=== PATIENT | female | born 1940 | race Caucasian/White ===

== ENCOUNTER 2022-05-24 20:30 | Inpatient (IN) | payer MEDICARE ==
[~2022-05-24] VITALS: Ht 172.7 cm; Wt 64.9 kg
[2022-05-24] MEDS: RIVAROXABAN 20 MG TABLET PO SCH ×2 (21:30→22:42)
[2022-05-24 22:00] VITALS: BP 104/70; PULSE 148; RESP 16; TEMP 97.2; O2SAT 98
[2022-05-24] MEDS ORDERED: Vancomycin IV 1 GM in SODIUM CHLORIDE 0.9% 250ML 250 ML IV ONE (22:00)
[2022-05-24] MEDS ORDERED: AMIODARONE 900MG 900 MG in Premix Bag 1 BAG IV SCH (22:15)
[2022-05-24] MEDS ORDERED: AMIODARONE HCL 150 MG/100 ML BAG IV ONE (22:15)
[2022-05-24] MEDS ORDERED: DIGOXIN INJ 0.25 MG/ML 2 ML AMP IV ONE (22:15)
[2022-05-24] MEDS ORDERED: METOPROLOL TARTRATE INJ 1 MG/ML VIAL IV PRN (22:15)
[2022-05-24] MEDS ORDERED: AMIODARONE 900MG 500 ML IV ONE (22:33)
[2022-05-24] MEDS: ROPINIROLE HCL 2 MG TAB PO SCH (22:42)
[2022-05-24] MEDS: HYDROCODONE/APAP 10MG-325MG TAB PO PRN (22:43)
[2022-05-24 23:18] LABS: BASOPHILS % 0.3 % (0.0-1.0); EOSINOPHILS # (AUTO) 0.1 (0.0-0.4); EOSINOPHILS % 1.4 % (0.0-6.0); HEMATOCRIT 28.9 % (34.2-44.1); HEMOGLOBIN 9.2 g/dL (12.0-16.0); LYMPHOCYTES # (AUTO) 0.7 (1.0-3.2); LYMPHOCYTES % 10.9 % (18.0-39.1); MEAN CORPUSCULAR HEMOGLOBIN 30.1 pg (28-32); MEAN CORPUSCULAR HGB CONC 31.8 g/dL (31-35); MEAN CORPUSCULAR VOLUME 94.4 fL (81-99); MONOCYTES # (AUTO) 0.4 (0.2-0.8); MONOCYTES % 6.7 % (4.4-11.3); NEUTROPHILS # (AUTO) 5.3 (2.1-6.9); NEUTROPHILS % 80.2 % (38.7-80.0); PLATELET COUNT 346 x10e3/uL (140-360); RED BLOOD COUNT 3.06 x10e6/uL (3.6-5.1); RED CELL DISTRIBUTION WIDTH 13.3 % (11.7-14.4)
[2022-05-24 23:23] LABS: CLARITY,URINE SL CLOUDY (CLEAR); COLOR,URINE YELLOW (YELLOW); LEUKOCYTE ESTERASE ,URINE NEGATIVE (NEGATIVE); NITRITE,URINE NEGATIVE (NEGATIVE); PROTEIN,URINE DIPSTICK NEGATIVE (NEGATIVE)
[2022-05-24 23:24] LABS: KETONES,URINE NEGATIVE (NEGATIVE); URINE UROBILINOGEN 0.2 mg/dL (0.2 - 1)
[2022-05-24 23:36] LABS: ALBUMIN 2.2 g/dL (3.5-5.0); ALBUMIN/GLOBULIN RATIO 0.7 (0.8-2.0); ANION GAP 17.4 mmol/L (8-16); CREATININE, SERUM 1.28 mg/dL (0.57-1.11); POTASSIUM 3.4 mmol/L (3.5-5.1)
[2022-05-24 23:37] LABS: BACTERIA,URINE MANY /HPF; EPITHELIAL CELLS,URINE FEW /LPF; TRANSITIONAL EPI CELLS,URINE FEW
[2022-05-24 23:45] VITALS: BP 84/64; PULSE 128; RESP 16; O2SAT 100
[2022-05-25] VITALS (72 sets, daily range): BP systolic 71–126; BP diastolic 43–99; PULSE 81–138; RESP 13–27; TEMP 97.2–99.1; O2SAT 83–100
[2022-05-25] MEDS: SODIUM CHLORIDE 0.9% 1000ML 1,000 ML IV SCH ×3 (01:35→19:56)
[2022-05-25 06:53] LABS: BASOPHILS % 0.4 % (0.0-1.0); EOSINOPHILS # (AUTO) 0.1 (0.0-0.4); HEMATOCRIT 24.1 % (34.2-44.1); LYMPHOCYTES # (AUTO) 0.7 (1.0-3.2); LYMPHOCYTES % 12.4 % (18.0-39.1); MEAN CORPUSCULAR HEMOGLOBIN 31.9 pg (28-32); MEAN CORPUSCULAR HGB CONC 33.2 g/dL (31-35); MONOCYTES # (AUTO) 0.4 (0.2-0.8); MONOCYTES % 6.6 % (4.4-11.3); NEUTROPHILS # (AUTO) 4.3 (2.1-6.9); NEUTROPHILS % 77.9 % (38.7-80.0); PLATELET COUNT 271 x10e3/uL (140-360); RED BLOOD COUNT 2.51 x10e6/uL (3.6-5.1); RED CELL DISTRIBUTION WIDTH 13.8 % (11.7-14.4)
[2022-05-25 07:08] LABS: ALBUMIN 1.8 g/dL (3.5-5.0); ALBUMIN/GLOBULIN RATIO 0.7 (0.8-2.0); CALCIUM 7.7 mg/dL (8.4-10.2); CREATININE, SERUM 0.99 mg/dL (0.57-1.11)
[2022-05-25] MEDS ORDERED: POTASSIUM CHLORIDE 20MEQ/100ML 200 ML IV ONE (07:15)
[2022-05-25] MEDS: LEVOTHYROXINE SODIUM 50 MCG TAB PO SCH (07:42)
[2022-05-25] MEDS ORDERED: CYMBALTA30 MG PO (16:09)
[2022-05-25] MEDS ORDERED: CRESTOR10 MG PO (16:09)
[2022-05-25] MEDS ORDERED: ARICEPT5 MG PO (16:10)
[2022-05-25] MEDS ORDERED: NEXIUM40 MG PO (16:10)
[2022-05-25] MEDS ORDERED: VITAMIN B-121000 MC1 PO (16:11)
[2022-05-25] MEDS ORDERED: VITAMIN C1000 MG PO (16:14)
[2022-05-25] MEDS ORDERED: VITAMIN D350 MCG PO (16:18)
[2022-05-25] MEDS ORDERED: VITAMIN E400 UNI1 PO (16:18)
[2022-05-25] MEDS ORDERED: MULTI-VITAMIN1 EACH PO (16:19)
[2022-05-25] MEDS ORDERED: CALCIUM ACETAT667 MG PO (16:20)
[2022-05-25] MEDS ORDERED: ROPINIROLE HCL2 MG PO (16:22)
[2022-05-25] MEDS ORDERED: VESICARE10 MG PO (16:23)
[2022-05-25] MEDS ORDERED: OXYCODONE HCL30 MG PO (16:26)
[2022-05-25] MEDS ORDERED: HYDROCODONE-AC118 M1 PO (16:28)
[2022-05-25] MEDS ORDERED: LATANOPROST2.5 ML OP (16:30)
[2022-05-25] MEDS ORDERED: LEVOTHYROXINE50 MCG PO (16:31)
[2022-05-25] MEDS ORDERED: METHENAMINE HIPP1 GM PO (16:31)
[2022-05-25] MEDS ORDERED: ATENOLOL50 MG PO (16:33)
[2022-05-25] MEDS ORDERED: ALENDRONATE SOD70 MG PO (16:33)
[2022-05-25] MEDS ORDERED: XARELTO20 MG PO (16:34)
[2022-05-25] MEDS ORDERED: LASIX40 MG PO (16:35)
[2022-05-25] MEDS ORDERED: FAMOTIDINE20 MG PO (16:36)
[2022-05-25] MEDS ORDERED: DIAZEPAM5 MG PO (16:38)
[2022-05-25] MEDS ORDERED: AMBIEN10 MG PO (16:38)
[2022-05-25] MEDS: RIVAROXABAN 20 MG TABLET PO SCH (17:39)
[2022-05-25] MEDS: AMIODARONE HCL 200 MG TAB PO SCH (17:39)
[2022-05-25] MEDS: DONEPEZIL HCL 5 MG TAB PO SCH (19:55)
[2022-05-25] MEDS: ROPINIROLE HCL 2 MG TAB PO SCH (19:55)
[2022-05-25] MEDS: FAMOTIDINE 20 MG TAB PO SCH (19:55)
[2022-05-25] MEDS: HYDROCODONE/APAP 10MG-325MG TAB PO PRN (19:59)
[2022-05-25] MEDS: ZOLPIDEM TARTRATE 10 MG TAB PO PRN (23:06)
[2022-05-26] VITALS (36 sets, daily range): BP systolic 97–134; BP diastolic 52–86; PULSE 79–113; RESP 12–36; TEMP 97.9–98.9; O2SAT 92–100
[2022-05-26] MEDS: LEVOTHYROXINE SODIUM 50 MCG TAB PO SCH (05:12)
[2022-05-26 08:10] LABS: ALBUMIN 1.6 g/dL (3.5-5.0); ALBUMIN/GLOBULIN RATIO 0.7 (0.8-2.0); ANION GAP 9.9 mmol/L (8-16); CALCIUM 7.6 mg/dL (8.4-10.2); CREATININE, SERUM 0.75 mg/dL (0.57-1.11); POTASSIUM 3.9 mmol/L (3.5-5.1)
[2022-05-26] MEDS: PANTOPRAZOLE SOD 40 MG TABEC PO SCH (09:26)
[2022-05-26] MEDS: DULOXETINE HCL 30 MG DELAYED RELEASE PO SCH (09:26)
[2022-05-26] MEDS: AMIODARONE HCL 200 MG TAB PO SCH ×2 (09:26→16:35)
[2022-05-26] MEDS: MULTIVITAMINS/MINERALS TAB PO SCH (09:26)
[2022-05-26 11:57] LABS: BASOPHILS % 0.4 % (0.0-1.0); EOSINOPHILS # (AUTO) 0.1 (0.0-0.4); EOSINOPHILS % 1.6 % (0.0-6.0); HEMATOCRIT 25.2 % (34.2-44.1); HEMOGLOBIN 7.8 g/dL (12.0-16.0); LYMPHOCYTES # (AUTO) 0.8 (1.0-3.2); MEAN CORPUSCULAR VOLUME 96.9 fL (81-99); MONOCYTES # (AUTO) 0.5 (0.2-0.8); MONOCYTES % 7.1 % (4.4-11.3); NEUTROPHILS # (AUTO) 5.4 (2.1-6.9); NEUTROPHILS % 78.3 % (38.7-80.0); PLATELET COUNT 334 x10e3/uL (140-360); RED CELL DISTRIBUTION WIDTH 14.3 % (11.7-14.4)
[2022-05-26] MEDS: RIVAROXABAN 20 MG TABLET PO SCH (16:35)
[2022-05-26] MEDS: ROPINIROLE HCL 2 MG TAB PO SCH (19:07)
[2022-05-26] MEDS: DONEPEZIL HCL 5 MG TAB PO SCH (19:07)
[2022-05-26] MEDS: HYDROCODONE/APAP 10MG-325MG TAB PO PRN ×2 (19:07→22:49)
[2022-05-26] MEDS: FAMOTIDINE 20 MG TAB PO SCH (19:07)
[2022-05-26] MEDS: SIMVASTATIN 20 MG TAB PO SCH (19:07)
[2022-05-26] MEDS: ZOLPIDEM TARTRATE 10 MG TAB PO PRN (22:48)
[2022-05-27] VITALS (12 sets, daily range): BP systolic 115–129; BP diastolic 61–87; PULSE 85–99; RESP 15–19; TEMP 97.8–98.5; O2SAT 94–97
[2022-05-27] MEDS: LEVOTHYROXINE SODIUM 50 MCG TAB PO SCH (05:47)
[2022-05-27] MEDS: HYDROCODONE/APAP 10MG-325MG TAB PO PRN ×2 (05:57→14:35)
[2022-05-27] MEDS ORDERED: BISACODYL 5 MG TAB EC PO PRN (07:15)
[2022-05-27 07:34] LABS: BASOPHILS % 0.7 % (0.0-1.0); EOSINOPHILS # (AUTO) 0.1 (0.0-0.4); EOSINOPHILS % 1.8 % (0.0-6.0); HEMATOCRIT 25.1 % (34.2-44.1); HEMOGLOBIN 7.9 g/dL (12.0-16.0); LYMPHOCYTES # (AUTO) 1.1 (1.0-3.2); LYMPHOCYTES % 18.5 % (18.0-39.1); MEAN CORPUSCULAR HEMOGLOBIN 31.7 pg (28-32); MEAN CORPUSCULAR HGB CONC 31.5 g/dL (31-35); MEAN CORPUSCULAR VOLUME 100.8 fL (81-99); MONOCYTES # (AUTO) 0.5 (0.2-0.8); MONOCYTES % 7.5 % (4.4-11.3); NEUTROPHILS # (AUTO) 4.3 (2.1-6.9); PLATELET COUNT 327 x10e3/uL (140-360); RED BLOOD COUNT 2.49 x10e6/uL (3.6-5.1); RED CELL DISTRIBUTION WIDTH 14.9 % (11.7-14.4)
[2022-05-27 07:48] LABS: ALBUMIN 1.8 g/dL (3.5-5.0); ALBUMIN/GLOBULIN RATIO 0.7 (0.8-2.0); ANION GAP 13.1 mmol/L (8-16); CALCIUM 8.3 mg/dL (8.4-10.2); CREATININE, SERUM 0.82 mg/dL (0.57-1.11); POTASSIUM 4.1 mmol/L (3.5-5.1)
[2022-05-27] MEDS: PANTOPRAZOLE SOD 40 MG TABEC PO SCH (08:21)
[2022-05-27] MEDS: AMIODARONE HCL 200 MG TAB PO SCH ×2 (08:21→17:30)
[2022-05-27] MEDS: MULTIVITAMINS/MINERALS TAB PO SCH (08:21)
[2022-05-27] MEDS: DULOXETINE HCL 30 MG DELAYED RELEASE PO SCH (08:21)
[2022-05-27] MEDS: SODIUM CHLORIDE 0.9% 1000ML 1,000 ML IV SCH ×2 (13:34→17:30)
[2022-05-27] MEDS: RIVAROXABAN 20 MG TABLET PO SCH (17:30)
[2022-05-27] MEDS: ROPINIROLE HCL 2 MG TAB PO SCH (20:40)
[2022-05-27] MEDS: SIMVASTATIN 20 MG TAB PO SCH (20:40)
[2022-05-27] MEDS: DONEPEZIL HCL 5 MG TAB PO SCH (20:40)
[2022-05-27] MEDS: FAMOTIDINE 20 MG TAB PO SCH (20:41)
[2022-05-27] MEDS: ZOLPIDEM TARTRATE 10 MG TAB PO PRN (21:28)
[2022-05-28] VITALS (7 sets, daily range): BP systolic 129–149; BP diastolic 68–85; PULSE 90–105; RESP 16–19; TEMP 97–98.3; O2SAT 96–100
[2022-05-28] MEDS: LEVOTHYROXINE SODIUM 50 MCG TAB PO SCH (05:39)
[2022-05-28 06:09] LABS: BASOPHILS # (AUTO) 0.1 (0.0-0.1); BASOPHILS % 0.8 % (0.0-1.0); EOSINOPHILS # (AUTO) 0.2 (0.0-0.4); EOSINOPHILS % 2.8 % (0.0-6.0); HEMOGLOBIN 8.1 g/dL (12.0-16.0); LYMPHOCYTES # (AUTO) 1.1 (1.0-3.2); LYMPHOCYTES % 16.8 % (18.0-39.1); MEAN CORPUSCULAR HEMOGLOBIN 29.8 pg (28-32); MEAN CORPUSCULAR VOLUME 99.3 fL (81-99); MONOCYTES # (AUTO) 0.5 (0.2-0.8); MONOCYTES % 7.7 % (4.4-11.3); NEUTROPHILS # (AUTO) 4.7 (2.1-6.9); NEUTROPHILS % 71.1 % (38.7-80.0); PLATELET COUNT 274 x10e3/uL (140-360); RED BLOOD COUNT 2.72 x10e6/uL (3.6-5.1); RED CELL DISTRIBUTION WIDTH 14.6 % (11.7-14.4)
[2022-05-28 06:32] LABS: ALBUMIN 1.8 g/dL (3.5-5.0); ALBUMIN/GLOBULIN RATIO 0.7 (0.8-2.0); ANION GAP 11.6 mmol/L (8-16); CALCIUM 8.2 mg/dL (8.4-10.2); CREATININE, SERUM 0.75 mg/dL (0.57-1.11); POTASSIUM 3.6 mmol/L (3.5-5.1)
[2022-05-28] MEDS: HYDROCODONE/APAP 10MG-325MG TAB PO PRN ×3 (07:41→18:40)
[2022-05-28] MEDS: MULTIVITAMINS/MINERALS TAB PO SCH (09:17)
[2022-05-28] MEDS: AMIODARONE HCL 200 MG TAB PO SCH ×2 (09:17→16:33)
[2022-05-28] MEDS: PANTOPRAZOLE SOD 40 MG TABEC PO SCH (09:18)
[2022-05-28] MEDS: DULOXETINE HCL 30 MG DELAYED RELEASE PO SCH (09:18)
[2022-05-28] MEDS: SODIUM CHLORIDE 0.9% 1000ML 1,000 ML IV SCH (15:15)
[2022-05-28] MEDS: RIVAROXABAN 20 MG TABLET PO SCH (16:33)
[2022-05-28] MEDS: ZOLPIDEM TARTRATE 10 MG TAB PO PRN (21:50)
[2022-05-28] MEDS: SIMVASTATIN 20 MG TAB PO SCH (21:51)
[2022-05-28] MEDS: ROPINIROLE HCL 2 MG TAB PO SCH (21:51)
[2022-05-28] MEDS: DONEPEZIL HCL 5 MG TAB PO SCH (21:51)
[2022-05-28] MEDS: FAMOTIDINE 20 MG TAB PO SCH (21:52)
[2022-05-29] VITALS (8 sets, daily range): BP systolic 108–156; BP diastolic 63–87; PULSE 90–159; RESP 16–20; TEMP 97.5–98.2; O2SAT 93–100
[2022-05-29] MEDS: HYDROCODONE/APAP 10MG-325MG TAB PO PRN ×3 (04:23→15:04)
[2022-05-29] MEDS: LEVOTHYROXINE SODIUM 50 MCG TAB PO SCH (05:44)
[2022-05-29] MEDS: PANTOPRAZOLE SOD 40 MG TABEC PO SCH (09:28)
[2022-05-29] MEDS: DULOXETINE HCL 30 MG DELAYED RELEASE PO SCH (09:28)
[2022-05-29] MEDS: MULTIVITAMINS/MINERALS TAB PO SCH (09:28)
[2022-05-29] MEDS: AMIODARONE HCL 200 MG TAB PO SCH ×2 (09:28→16:08)
[2022-05-29] MEDS: SODIUM CHLORIDE 0.9% 1000ML 1,000 ML IV SCH (10:51)
[2022-05-29] MEDS ORDERED: METOPROLOL TARTRATE INJ 1 MG/ML VIAL IV ONE (16:00)
[2022-05-29] MEDS: RIVAROXABAN 20 MG TABLET PO SCH (16:08)
[2022-05-29] MEDS ORDERED: DIGOXIN INJ 0.25 MG/ML 2 ML AMP IV ONE (18:25)
[2022-05-29] MEDS: DONEPEZIL HCL 5 MG TAB PO SCH (21:12)
[2022-05-29] MEDS: FAMOTIDINE 20 MG TAB PO SCH (21:12)
[2022-05-29] MEDS: ZOLPIDEM TARTRATE 10 MG TAB PO PRN (21:13)
[2022-05-29] MEDS: ROPINIROLE HCL 2 MG TAB PO SCH (21:13)
[2022-05-29] MEDS: SIMVASTATIN 20 MG TAB PO SCH (21:13)
[2022-05-30] VITALS (8 sets, daily range): BP systolic 108–156; BP diastolic 63–98; PULSE 77–101; RESP 16–20; TEMP 97.4–98.5; O2SAT 95–100
[2022-05-30] MEDS: HYDROCODONE/APAP 10MG-325MG TAB PO PRN ×3 (04:01→18:19)
[2022-05-30] MEDS: LEVOTHYROXINE SODIUM 50 MCG TAB PO SCH (05:32)
[2022-05-30] MEDS: SODIUM CHLORIDE 0.9% 1000ML 1,000 ML IV SCH (05:32)
[2022-05-30 06:10] LABS: BASOPHILS # (AUTO) 0.1 (0.0-0.1); BASOPHILS % 1.1 % (0.0-1.0); EOSINOPHILS # (AUTO) 0.2 (0.0-0.4); EOSINOPHILS % 3.7 % (0.0-6.0); HEMATOCRIT 28.6 % (34.2-44.1); HEMOGLOBIN 8.5 g/dL (12.0-16.0); LYMPHOCYTES # (AUTO) 1.1 (1.0-3.2); LYMPHOCYTES % 18.5 % (18.0-39.1); MEAN CORPUSCULAR HEMOGLOBIN 29.5 pg (28-32); MEAN CORPUSCULAR HGB CONC 29.7 g/dL (31-35); MEAN CORPUSCULAR VOLUME 99.3 fL (81-99); MONOCYTES # (AUTO) 0.5 (0.2-0.8); MONOCYTES % 8.6 % (4.4-11.3); NEUTROPHILS # (AUTO) 4.2 (2.1-6.9); NEUTROPHILS % 67.6 % (38.7-80.0); PLATELET COUNT 251 x10e3/uL (140-360); RED BLOOD COUNT 2.88 x10e6/uL (3.6-5.1)
[2022-05-30 06:39] LABS: ANION GAP 10.5 mmol/L (8-16); CALCIUM 8.4 mg/dL (8.4-10.2); CREATININE, SERUM 0.71 mg/dL (0.57-1.11); POTASSIUM 3.5 mmol/L (3.5-5.1)
[2022-05-30] MEDS: DULOXETINE HCL 30 MG DELAYED RELEASE PO SCH (11:24)
[2022-05-30] MEDS: MULTIVITAMINS/MINERALS TAB PO SCH (11:24)
[2022-05-30] MEDS: AMIODARONE HCL 200 MG TAB PO SCH ×2 (11:24→17:08)
[2022-05-30] MEDS: PANTOPRAZOLE SOD 40 MG TABEC PO SCH (11:26)
[2022-05-30] MEDS ORDERED: METOPROLOL TARTRATE 25 MG TAB PO SCH (13:30)
[2022-05-30] MEDS: RIVAROXABAN 20 MG TABLET PO SCH (17:07)
== END 2022-05-30 19:50 | disposition home or self-care (01) | DRG 871 ==
LOC: ICU 20:31 → MED/SURG2 05-27 15:48
PROVIDERS: ADMIT Family Medicine; ATTEND Family Medicine
PROC: 02HV33Z Insertion of Infusion Device into Superior Vena Cava, Percutaneous Approach (ICD-10-PCS; principal; 2022-05-25)
PROC: 8E0ZXY6 Isolation (ICD-10-PCS; 2022-05-25)
DX: A41.9 Sepsis, unspecified organism (principal); G93.41 Metabolic encephalopathy; U07.1 COVID-19; N17.9 Acute kidney failure, unspecified; E87.1 Hypo-osmolality and hyponatremia; I47.20 Ventricular tachycardia, unspecified; I48.0 Paroxysmal atrial fibrillation; E87.6 Hypokalemia; Z79.01 Long term (current) use of anticoagulants; I80.8 Phlebitis and thrombophlebitis of other sites; Z88.1 Allergy status to other antibiotic agents; Z88.5 Allergy status to narcotic agent; Z88.2 Allergy status to sulfonamides; M54.9 Dorsalgia, unspecified; G89.29 Other chronic pain; Z96.652 Presence of left artificial knee joint; Z96.641 Presence of right artificial hip joint; M16.11 Unilateral primary osteoarthritis, right hip; F03.90 Unspecified dementia, unspecified severity, without behavioral disturbance, psychotic disturbance, mood disturbance, and anxiety; Z96.642 Presence of left artificial hip joint
CPT/HCPCS: 36415; 36569; 71045; 80048; 80053; 81001; 83605; 83735; 85025; 87040; 93971; 94799; 96361; 99252; J1160; J2543; J3480; J7030; J7050

== ENCOUNTER 2022-06-10 18:50 | Emergency (ER) | payer MEDICARE ==
[~2022-06-10] VITALS: Ht 172.7 cm; Wt 64.9 kg
[~2022-06-10 18:50] MED LIST: ALENDRONATE SOD70 MG PO; AMBIEN10 MG PO; ARICEPT5 MG PO; ATENOLOL50 MG PO; CALCIUM ACETAT667 MG PO; CRESTOR10 MG PO; CYMBALTA30 MG PO; DIAZEPAM5 MG PO; FAMOTIDINE20 MG PO; HYDROCODONE-AC118 M1 PO; LASIX40 MG PO; LATANOPROST2.5 ML OP; LEVOTHYROXINE50 MCG PO; METHENAMINE HIPP1 GM PO; MULTI-VITAMIN1 EACH PO; NEXIUM40 MG PO; OXYCODONE HCL30 MG PO; ROPINIROLE HCL2 MG PO; VESICARE10 MG PO; VITAMIN B-121000 MC1 PO; VITAMIN C1000 MG PO; VITAMIN D350 MCG PO; VITAMIN E400 UNI1 PO; XARELTO20 MG PO
[2022-06-10 19:37] VITALS: O2SAT 99
[2022-06-10] MEDS ORDERED: MEDROL4 M2 PO (19:47)
== END 2022-06-10 21:00 | disposition home or self-care (01) ==
LOC: ER 19:12
DX: M79.631 Pain in right forearm (principal); I10 Essential (primary) hypertension; I25.10 Atherosclerotic heart disease of native coronary artery without angina pectoris; I48.91 Unspecified atrial fibrillation
CPT/HCPCS: 99282

== ENCOUNTER 2023-08-17 09:24 | Inpatient (IN) | payer MEDICARE ==
[2023-08-17] VITALS (16 sets, daily range): BP systolic 78–97; BP diastolic 55–82; PULSE 64–92; RESP 13–27; TEMP 97.8–98.3; O2SAT 94–99
[~2023-08-17] VITALS: Ht 152.4 cm; Wt 62.6 kg
[~2023-08-17 09:24] MED LIST changes: +MEDROL4 M2 PO
[2023-08-17] MEDS ORDERED: SODIUM CHLORIDE FLUSH 10 ML SYR IV PRN (10:00)
[2023-08-17 10:39] LABS: BASOPHILS # (AUTO) 0.1 (0.0-0.1); BASOPHILS % 0.4 % (0.0-1.0); EOSINOPHILS # (AUTO) 0.1 (0.0-0.4); EOSINOPHILS % 0.4 % (0.0-6.0); HEMATOCRIT 41.2 % (34.2-44.1); HEMOGLOBIN 13.2 g/dL (12.0-16.0); LYMPHOCYTES # (AUTO) 1.9 (1.0-3.2); LYMPHOCYTES % 14.3 % (18.0-39.1); MEAN CORPUSCULAR HEMOGLOBIN 32.6 pg (28-32); MEAN CORPUSCULAR VOLUME 101.7 fL (81-99); MONOCYTES # (AUTO) 1.8 (0.2-0.8); MONOCYTES % 13.5 % (4.4-11.3); NEUTROPHILS # (AUTO) 9.5 (2.1-6.9); NEUTROPHILS % 70.5 % (38.7-80.0); PLATELET COUNT 156 x10e3/uL (140-360); RED BLOOD COUNT 4.05 x10e6/uL (3.6-5.1); RED CELL DISTRIBUTION WIDTH 13.2 % (11.7-14.4); WHITE BLOOD COUNT 13.43 x10e3/uL (4.8-10.8)
[2023-08-17 11:04] LABS: ALBUMIN 3.1 g/dL (3.5-5.0); ALBUMIN/GLOBULIN RATIO 1.1 (0.8-2.0); ANION GAP 18.2 mmol/L (8-16); BILIRUBIN,TOTAL 1.1 mg/dL (0.2-1.2); CALCIUM 9.8 mg/dL (8.4-10.2); CREATININE, SERUM 1.75 mg/dL (0.57-1.11); POTASSIUM 4.2 mmol/L (3.5-5.1); TOTAL PROTEIN 5.9 g/dL (6.5-8.1)
[2023-08-17] MEDS: ASPIRIN 81 MG CHEW TAB PO ONE ×2 (11:05→17:49)
[2023-08-17] MEDS: ONDANSETRON HCL INJ 2MG/ML 2ML 2 MG/ML VIAL IV STA (11:05)
[2023-08-17 11:12] LABS: TROPONIN I 1.303 ng/mL (0-0.300)
[2023-08-17] MEDS: NOREPINEPHRINE 8 MG/D5W 250 ML 250 ML IV SCH (11:45)
[2023-08-17] MEDS ORDERED: HEPARIN SOD/DEXTROSE 5% 25000 UNIT/250 ML BAG IV SCH (11:45)
[2023-08-17] MEDS ORDERED: ONDANSETRON HCL INJ 2MG/ML 2ML 2 MG/ML VIAL IV PRN (12:45)
[2023-08-17] MEDS ORDERED: SODIUM CHLORIDE FLUSH 10 ML SYR INJ PRN (12:45)
[2023-08-17] MEDS: MUPIROCIN 2% OINT 22 GM TUBE TOP SCH (12:45)
[2023-08-17] MEDS ORDERED: HEPARIN 25,000 UNIT DRIP IV ONE (14:14)
[2023-08-17] MEDS: FUROSEMIDE INJ 10 MG/ML 4 ML VIAL IV SCH (14:17)
[2023-08-17] MEDS: HEPARIN SOD (PORCINE) 5,000 UNIT/ML VIAL IV ONE (14:18)
[2023-08-17] MEDS: HEPARIN 25,000 UNIT/D5W 250ML 250 ML IV SCH (14:21)
[2023-08-17 14:23] LABS: INR 1.15; PROTHROMBIN TIME 15.5 seconds (11.9-14.5)
[2023-08-17 18:58] LABS: TROPONIN I 1.029 ng/mL (0-0.300)
[2023-08-17] MEDS: ZOLPIDEM TARTRATE 10 MG TAB PO SCH (21:08)
[2023-08-18] VITALS (30 sets, daily range): BP systolic 88–147; BP diastolic 50–83; PULSE 71–100; RESP 17–36; TEMP 97.6–98.2; O2SAT 92–100
[2023-08-18 05:11] LABS: BASOPHILS % 0.2 % (0.0-1.0); EOSINOPHILS % 0.1 % (0.0-6.0); HEMATOCRIT 34.9 % (34.2-44.1); HEMOGLOBIN 11.4 g/dL (12.0-16.0); LYMPHOCYTES % 9.9 % (18.0-39.1); MEAN CORPUSCULAR HEMOGLOBIN 32.9 pg (28-32); MEAN CORPUSCULAR HGB CONC 32.7 g/dL (31-35); MEAN CORPUSCULAR VOLUME 100.6 fL (81-99); MONOCYTES # (AUTO) 1.1 (0.2-0.8); MONOCYTES % 10.5 % (4.4-11.3); NEUTROPHILS # (AUTO) 8.2 (2.1-6.9); NEUTROPHILS % 78.5 % (38.7-80.0); PLATELET COUNT 151 x10e3/uL (140-360); RED BLOOD COUNT 3.47 x10e6/uL (3.6-5.1); RED CELL DISTRIBUTION WIDTH 12.9 % (11.7-14.4); WHITE BLOOD COUNT 10.47 x10e3/uL (4.8-10.8)
[2023-08-18 05:27] LABS: ALBUMIN 2.5 g/dL (3.5-5.0); ALBUMIN/GLOBULIN RATIO 0.9 (0.8-2.0); ANION GAP 15.1 mmol/L (8-16); BILIRUBIN,TOTAL 0.5 mg/dL (0.2-1.2); CALCIUM 9.2 mg/dL (8.4-10.2); CREATININE, SERUM 1.68 mg/dL (0.57-1.11); POTASSIUM 4.1 mmol/L (3.5-5.1); TOTAL PROTEIN 5.3 g/dL (6.5-8.1)
[2023-08-18 05:56] LABS: TROPONIN I 0.554 ng/mL (0-0.300)
[2023-08-18] MEDS: LEVOTHYROXINE SODIUM 50 MCG TAB PO SCH (06:09)
[2023-08-18] MEDS: CRESTOR 10MG PO SCH (08:26)
[2023-08-18] MEDS: ASPIRIN 81 MG ENTERIC COATED PO SCH (08:27)
[2023-08-18] MEDS ORDERED: SIMVASTATIN 40 MG TAB PO SCH (09:00)
[2023-08-18] MEDS: FUROSEMIDE INJ 100 MG in SODIUM CHLORIDE 0.9% 90 ML IV SCH (10:21)
[2023-08-19] VITALS (24 sets, daily range): BP systolic 84–113; BP diastolic 47–98; PULSE 69–90; RESP 14–26; TEMP 98–98.6; O2SAT 96–100
[2023-08-19 06:45] LABS: EOSINOPHILS % 0.4 % (0.0-6.0); HEMOGLOBIN 11.6 g/dL (12.0-16.0); LYMPHOCYTES # (AUTO) 0.7 (1.0-3.2); LYMPHOCYTES % 10.3 % (18.0-39.1); MEAN CORPUSCULAR HEMOGLOBIN 32.4 pg (28-32); MEAN CORPUSCULAR HGB CONC 32.2 g/dL (31-35); MEAN CORPUSCULAR VOLUME 100.6 fL (81-99); MONOCYTES # (AUTO) 0.7 (0.2-0.8); MONOCYTES % 10.1 % (4.4-11.3); NEUTROPHILS # (AUTO) 5.3 (2.1-6.9); NEUTROPHILS % 78.8 % (38.7-80.0); PLATELET COUNT 139 x10e3/uL (140-360); RED BLOOD COUNT 3.58 x10e6/uL (3.6-5.1); RED CELL DISTRIBUTION WIDTH 14.7 % (11.7-14.4)
[2023-08-19] MEDS ORDERED: GUAIFENESIN/CODEINE 5 ML LIQD PO PRN (08:15)
[2023-08-19 08:38] LABS: ALBUMIN 2.4 g/dL (3.5-5.0); ALBUMIN/GLOBULIN RATIO 0.8 (0.8-2.0); ANION GAP 16.8 mmol/L (8-16); BILIRUBIN,TOTAL 0.5 mg/dL (0.2-1.2); CALCIUM 8.9 mg/dL (8.4-10.2); CREATININE, SERUM 1.15 mg/dL (0.57-1.11); POTASSIUM 3.8 mmol/L (3.5-5.1); TOTAL PROTEIN 5.5 g/dL (6.5-8.1)
[2023-08-19] MEDS: GUAIFENESIN 200 MG/10 ML UDC PO PRN (09:40)
[2023-08-20] VITALS (15 sets, daily range): BP systolic 90–129; BP diastolic 59–74; PULSE 76–155; RESP 16–31; TEMP 97.8–99; O2SAT 94–98
[2023-08-20 05:20] LABS: BASOPHILS % 0.5 % (0.0-1.0); EOSINOPHILS # (AUTO) 0.1 (0.0-0.4); EOSINOPHILS % 1.4 % (0.0-6.0); HEMOGLOBIN 11.8 g/dL (12.0-16.0); LYMPHOCYTES # (AUTO) 0.8 (1.0-3.2); MEAN CORPUSCULAR HEMOGLOBIN 32.6 pg (28-32); MEAN CORPUSCULAR HGB CONC 32.8 g/dL (31-35); MEAN CORPUSCULAR VOLUME 99.4 fL (81-99); MONOCYTES # (AUTO) 0.6 (0.2-0.8); MONOCYTES % 11.1 % (4.4-11.3); NEUTROPHILS # (AUTO) 4.2 (2.1-6.9); NEUTROPHILS % 73.5 % (38.7-80.0); PLATELET COUNT 162 x10e3/uL (140-360); RED BLOOD COUNT 3.62 x10e6/uL (3.6-5.1); WHITE BLOOD COUNT 5.77 x10e3/uL (4.8-10.8)
[2023-08-20 06:03] LABS: ALBUMIN 2.3 g/dL (3.5-5.0); ALBUMIN/GLOBULIN RATIO 0.8 (0.8-2.0); ANION GAP 14.6 mmol/L (8-16); BILIRUBIN,TOTAL 0.4 mg/dL (0.2-1.2); CREATININE, SERUM 0.88 mg/dL (0.57-1.11); MAGNESIUM 1.7 MG/DL (1.3-2.1); POTASSIUM 3.6 mmol/L (3.5-5.1); TOTAL PROTEIN 5.2 g/dL (6.5-8.1)
[2023-08-20] MEDS ORDERED: CEFTRIAXONE 1 GM VIAL ONE (08:24)
[2023-08-20] MEDS: FUROSEMIDE INJ 10 MG/ML 4 ML VIAL IV SCH (09:06)
[2023-08-20] MEDS: RIVAROXABAN 20 MG TABLET PO SCH (17:44)
[2023-08-20] MEDS: METOPROLOL TARTRATE 25 MG TAB PO SCH (18:02)
[2023-08-20] MEDS: METOPROLOL TARTRATE INJ 1 MG/ML VIAL IV PRN (18:03)
[2023-08-20] MEDS: AMIODARONE HCL 150 MG/100 ML BAG IV ONE (21:04)
[2023-08-20] MEDS: AMIODARONE 900MG 500 ML IV ONE (21:05)
[2023-08-21] VITALS (31 sets, daily range): BP systolic 89–132; BP diastolic 58–100; PULSE 82–133; RESP 14–30; TEMP 97.7–98.4; O2SAT 94–100
[2023-08-21] MEDS: HYDROCODONE/APAP 7.5MG-325MG 1 EA TAB PO ONE (01:32)
[2023-08-21] MEDS ORDERED: POLYETHYLENE GLYCOL 3350 17 GM PACK PO PRN (01:45)
[2023-08-21 06:50] LABS: BASOPHILS % 0.6 % (0.0-1.0); EOSINOPHILS # (AUTO) 0.1 (0.0-0.4); EOSINOPHILS % 1.7 % (0.0-6.0); HEMATOCRIT 40.6 % (34.2-44.1); HEMOGLOBIN 12.5 g/dL (12.0-16.0); LYMPHOCYTES # (AUTO) 1.2 (1.0-3.2); LYMPHOCYTES % 18.2 % (18.0-39.1); MEAN CORPUSCULAR HEMOGLOBIN 31.3 pg (28-32); MEAN CORPUSCULAR HGB CONC 30.8 g/dL (31-35); MEAN CORPUSCULAR VOLUME 101.5 fL (81-99); MONOCYTES % 15.8 % (4.4-11.3); NEUTROPHILS % 63.5 % (38.7-80.0); PLATELET COUNT 165 x10e3/uL (140-360); RED CELL DISTRIBUTION WIDTH 12.1 % (11.7-14.4); WHITE BLOOD COUNT 6.32 x10e3/uL (4.8-10.8)
[2023-08-21 08:23] LABS: ALBUMIN 2.3 g/dL (3.5-5.0); ALBUMIN/GLOBULIN RATIO 0.8 (0.8-2.0); ANION GAP 17.1 mmol/L (8-16); BILIRUBIN,TOTAL 0.4 mg/dL (0.2-1.2); CALCIUM 9.3 mg/dL (8.4-10.2); CREATININE, SERUM 0.78 mg/dL (0.57-1.11); TOTAL PROTEIN 5.2 g/dL (6.5-8.1)
[2023-08-21] MEDS: MUPIROCIN 2% OINT 22 GM TUBE TOP SCH (08:27)
[2023-08-21 08:41] LABS: POTASSIUM 3.1 mmol/L (3.5-5.1)
[2023-08-21] MEDS: POTASSIUM CHLORIDE 20 MEQ TAB CR PO STA (12:51)
[2023-08-21] MEDS ORDERED: POTASSIUM CHLORIDE 20 MEQ TAB CR PO ONE (16:00)
[2023-08-21] MEDS: POTASSIUM CHLORIDE 10MEQ EA PO ONE (16:46)
[2023-08-21] MEDS: AMIODARONE 900MG 900 MG in Premix Bag 1 BAG IV SCH (22:08)
[2023-08-21] MEDS: AMIODARONE 900MG 500 ML IV ONE (22:11)
[2023-08-21] MEDS: METOPROLOL TARTRATE 50 MG TAB PO SCH (23:48)
[2023-08-22] VITALS (28 sets, daily range): BP systolic 82–152; BP diastolic 62–118; PULSE 62–117; RESP 10–25; TEMP 98–99.2; O2SAT 93–100
[2023-08-22] MEDS: HYDROCODONE/APAP 7.5MG-325MG 1 EA TAB PO ONE (00:08)
[2023-08-22] MEDS ORDERED: AMIODARONE 900MG 500 ML IV SCH (00:15)
[2023-08-22 06:54] LABS: BASOPHILS # (AUTO) 0.1 (0.0-0.1); BASOPHILS % 0.9 % (0.0-1.0); EOSINOPHILS # (AUTO) 0.2 (0.0-0.4); EOSINOPHILS % 3.1 % (0.0-6.0); HEMATOCRIT 41.9 % (34.2-44.1); HEMOGLOBIN 13.1 g/dL (12.0-16.0); LYMPHOCYTES # (AUTO) 1.5 (1.0-3.2); LYMPHOCYTES % 21.4 % (18.0-39.1); MEAN CORPUSCULAR HEMOGLOBIN 31.6 pg (28-32); MEAN CORPUSCULAR HGB CONC 31.3 g/dL (31-35); MONOCYTES # (AUTO) 0.9 (0.2-0.8); MONOCYTES % 12.6 % (4.4-11.3); NEUTROPHILS # (AUTO) 4.2 (2.1-6.9); NEUTROPHILS % 61.7 % (38.7-80.0); PLATELET COUNT 185 x10e3/uL (140-360); RED BLOOD COUNT 4.15 x10e6/uL (3.6-5.1); RED CELL DISTRIBUTION WIDTH 12.2 % (11.7-14.4); WHITE BLOOD COUNT 6.81 x10e3/uL (4.8-10.8)
[2023-08-22 07:19] LABS: ALBUMIN 2.2 g/dL (3.5-5.0); ALBUMIN/GLOBULIN RATIO 0.7 (0.8-2.0); ANION GAP 13.2 mmol/L (8-16); BILIRUBIN,TOTAL 0.4 mg/dL (0.2-1.2); CALCIUM 9.4 mg/dL (8.4-10.2); CREATININE, SERUM 0.83 mg/dL (0.57-1.11); POTASSIUM 4.2 mmol/L (3.5-5.1); TOTAL PROTEIN 5.3 g/dL (6.5-8.1)
[2023-08-22 07:34] LABS: MAGNESIUM 1.6 MG/DL (1.3-2.1); PHOSPHORUS 3.6 MG/DL (2.3-4.7)
[2023-08-22 07:56] LABS: FREE T4 (FREE THYROXINE) 0.92 ng/dL (0.8-1.8); THYROID STIMULATING HORMONE 2.903 uIU/mL (0.350-4.940)
[2023-08-22] MEDS: AMIODARONE HCL 200 MG TAB PO SCH (16:31)
[2023-08-22] MEDS: FENTANYL CITRATE/PF 100MCG/2 ML INJ ONE (16:42)
[2023-08-22] MEDS: MIDAZOLAM HCL 2 MG/2 ML VIAL ONE (16:42)
[2023-08-22] MEDS: SODIUM CHLORIDE 0.9% 1000ML 1,000 ML ONE (16:43)
[2023-08-22] MEDS: LIDOCAINE HCL 2% LOCAL 20 ML VIAL ONE (16:43)
[2023-08-22] MEDS: BENZOCAINE 20% SPR 60 ML CAN ONE (16:43)
[2023-08-23] VITALS (12 sets, daily range): BP systolic 108–126; BP diastolic 56–76; PULSE 60–76; RESP 12–25; TEMP 97.7–98.6; O2SAT 95–100
[2023-08-23 07:13] LABS: BASOPHILS # (AUTO) 0.1 (0.0-0.1); EOSINOPHILS # (AUTO) 0.2 (0.0-0.4); EOSINOPHILS % 2.6 % (0.0-6.0); HEMATOCRIT 39.8 % (34.2-44.1); HEMOGLOBIN 12.4 g/dL (12.0-16.0); LYMPHOCYTES # (AUTO) 1.5 (1.0-3.2); LYMPHOCYTES % 20.5 % (18.0-39.1); MEAN CORPUSCULAR HEMOGLOBIN 31.3 pg (28-32); MEAN CORPUSCULAR HGB CONC 31.2 g/dL (31-35); MEAN CORPUSCULAR VOLUME 100.5 fL (81-99); MONOCYTES # (AUTO) 0.8 (0.2-0.8); MONOCYTES % 10.9 % (4.4-11.3); NEUTROPHILS # (AUTO) 4.8 (2.1-6.9); NEUTROPHILS % 64.6 % (38.7-80.0); PLATELET COUNT 202 x10e3/uL (140-360); RED BLOOD COUNT 3.96 x10e6/uL (3.6-5.1); RED CELL DISTRIBUTION WIDTH 12.1 % (11.7-14.4); WHITE BLOOD COUNT 7.36 x10e3/uL (4.8-10.8)
[2023-08-23 07:28] LABS: CREATININE, SERUM 0.81 mg/dL (0.57-1.11)
[2023-08-23] MEDS ORDERED: ONDANSETRON HCL 4 MG ORAL DISINTEGRATING TAB PO PRN (11:15)
[2023-08-23] MEDS: ACETAMINOPHEN 325 MG TAB PO PRN (14:02)
[2023-08-23] MEDS: FUROSEMIDE 40 MG TAB PO SCH (18:09)
[2023-08-23] MEDS: MAGNESIUM SULFATE 2GM/50ML 50 ML IV ONE (18:10)
[2023-08-23] MEDS: SODIUM CHLORIDE 0.9% 250ML 250 ML ONE (18:17)
[2023-08-23] MEDS: MUPIROCIN 2% OINT 22 GM TUBE TOP SCH (21:00)
[2023-08-23] MEDS: METOPROLOL TARTRATE 50 MG TAB PO SCH (21:51)
[2023-08-24] VITALS (10 sets, daily range): BP systolic 117–135; BP diastolic 65–90; PULSE 70–92; RESP 17–19; TEMP 97.8–98.1; O2SAT 95–100
[2023-08-24 06:52] LABS: ANION GAP 15.7 mmol/L (8-16); CALCIUM 9.7 mg/dL (8.4-10.2); CREATININE, SERUM 0.84 mg/dL (0.57-1.11); POTASSIUM 3.7 mmol/L (3.5-5.1)
[2023-08-24] MEDS: METHYLPREDNISOLONE SOD SUCC 40 MG/ML VIAL 1ML IV ONE (13:10)
[2023-08-24] MEDS: ROPINIROLE HCL 2 MG TAB PO SCH (22:23)
[2023-08-24] MEDS: ZOLPIDEM TARTRATE 10 MG TAB PO PRN (23:26)
[2023-08-25] VITALS (10 sets, daily range): BP systolic 111–133; BP diastolic 61–93; PULSE 71–87; RESP 18–20; TEMP 97.7–98.2; O2SAT 95–100
[2023-08-25] MEDS: HYDROCODONE/APAP 10MG-325MG TAB PO PRN (03:27)
[2023-08-25] MEDS: METHYLPREDNISOLONE SOD SUCC 40 MG/ML VIAL 1ML IV ONE (08:52)
[2023-08-26] VITALS (10 sets, daily range): BP systolic 106–136; BP diastolic 64–87; PULSE 64–117; RESP 17–20; TEMP 97.7–97.9; O2SAT 93–100
[2023-08-26] MEDS: METHYLPREDNISOLONE SOD SUCC 40 MG/ML VIAL 1ML IV ONE (10:41)
[2023-08-26] MEDS ORDERED: IOPAMIDOL 370 MG/ML 100 ML INFUS..BTL INJ ONE (12:46)
[2023-08-26] MEDS: ALBUTEROL/IPRATROPIUM 3 ML NEB NEB ONE (13:23)
[2023-08-26] MEDS: ALBUTEROL/IPRATROPIUM 3 ML NEB NEB PRN (13:58)
[2023-08-27] VITALS: BP 140/74; PULSE 73; RESP 20; TEMP 98.7; O2SAT 100
[2023-08-27 04:00] VITALS: BP 121/70; PULSE 69; RESP 17; TEMP 98.1; O2SAT 100
[2023-08-27 05:48] LABS: BASOPHILS % 0.1 % (0.0-1.0); HEMATOCRIT 36.3 % (34.2-44.1); HEMOGLOBIN 11.2 g/dL (12.0-16.0); LYMPHOCYTES # (AUTO) 1.3 (1.0-3.2); LYMPHOCYTES % 11.4 % (18.0-39.1); MEAN CORPUSCULAR HGB CONC 30.9 g/dL (31-35); MEAN CORPUSCULAR VOLUME 100.6 fL (81-99); MONOCYTES # (AUTO) 0.9 (0.2-0.8); NEUTROPHILS % 80.1 % (38.7-80.0); PLATELET COUNT 299 x10e3/uL (140-360); RED BLOOD COUNT 3.61 x10e6/uL (3.6-5.1); RED CELL DISTRIBUTION WIDTH 12.1 % (11.7-14.4); WHITE BLOOD COUNT 11.16 x10e3/uL (4.8-10.8)
[2023-08-27 06:16] LABS: ALBUMIN 2.8 g/dL (3.5-5.0); ALBUMIN/GLOBULIN RATIO 1.1 (0.8-2.0); ANION GAP 13.9 mmol/L (8-16); BILIRUBIN,TOTAL 0.4 mg/dL (0.2-1.2); CALCIUM 8.9 mg/dL (8.4-10.2); CREATININE, SERUM 0.81 mg/dL (0.57-1.11); TOTAL PROTEIN 5.3 g/dL (6.5-8.1)
[2023-08-27 06:37] LABS: POTASSIUM 2.9 mmol/L (3.5-5.1)
[2023-08-27 07:03] VITALS: PULSE 78; RESP 18; O2SAT 96
[2023-08-27 08:00] VITALS: BP 124/71; PULSE 66; RESP 19; TEMP 97.8; O2SAT 100
[2023-08-27] MEDS: POTASSIUM CHLORIDE 20 MEQ TAB CR PO ONE ×2 (09:53→15:53)
[2023-08-27 11:58] VITALS: PULSE 89; RESP 18; O2SAT 95
[2023-08-27 12:45] VITALS: BP 104/67; PULSE 64; RESP 18; TEMP 97.7; O2SAT 98
[2023-08-27] MEDS ORDERED: ASPIRIN EC81 MG PO (15:02)
[2023-08-27] MEDS ORDERED: AMIODARONE HCL200 MG PO (15:02)
[2023-08-27] MEDS ORDERED: GUAIFENESI100 MG/5 M PO (15:02)
[2023-08-27] MEDS ORDERED: ALBUTEROL0.63 MG/3 NEB (15:02)
[2023-08-27] MEDS ORDERED: FUROSEMIDE40 MG PO (15:02)
[2023-08-27] MEDS ORDERED: MUPIROCIN22 GM TOP (15:02)
[2023-08-27] MEDS ORDERED: METOPROLOL TART50 MG PO (15:02)
[2023-08-27] MEDS ORDERED: ONDANSETRON ODT4 MG PO (15:02)
[2023-08-27] MEDS ORDERED: ACETAMINOPHEN325 M1 PO (15:02)
[2023-08-27] MEDS ORDERED: MIRALAX17 GM PO (15:02)
[2023-08-27] MEDS ORDERED: K DUR10 MEQ PO (16:30)
[2023-08-27] MEDS ORDERED: PANTOPRAZOLE SOD 40 MG TABEC PO SCH (21:00)
== END 2023-08-27 18:00 | disposition home health service (06) | DRG 260 ==
LOC: ER 09:29 → ERHOLD 13:16 → ICU 15:31 → IMCU 08-20 10:34 → MED/SURG 08-20 14:04 → ICU 08-20 20:55 → MED/SURG2 08-23 09:09
PROVIDERS: ADMIT Internal Medicine; ATTEND Internal Medicine
PROC: 02HV33Z Insertion of Infusion Device into Superior Vena Cava, Percutaneous Approach (ICD-10-PCS; 2023-08-17)
PROC: 0JH632Z Insertion of Monitoring Device into Chest Subcutaneous Tissue and Fascia, Percutaneous Approach (ICD-10-PCS; principal; 2023-08-22)
PROC: 5A2204Z Restoration of Cardiac Rhythm, Single (ICD-10-PCS; 2023-08-22)
PROC: B24BZZ4 Ultrasonography of Heart with Aorta, Transesophageal (ICD-10-PCS; 2023-08-22)
DX: I48.0 Paroxysmal atrial fibrillation (principal); I21.A1 Myocardial infarction type 2; I50.33 Acute on chronic diastolic (congestive) heart failure; N17.9 Acute kidney failure, unspecified; E87.20 Acidosis, unspecified; I11.0 Hypertensive heart disease with heart failure; I95.9 Hypotension, unspecified; D72.829 Elevated white blood cell count, unspecified; R74.01 Elevation of levels of liver transaminase levels; D64.9 Anemia, unspecified; E03.9 Hypothyroidism, unspecified; E87.6 Hypokalemia; I25.10 Atherosclerotic heart disease of native coronary artery without angina pectoris; R06.00 Dyspnea, unspecified; M54.9 Dorsalgia, unspecified; Z79.01 Long term (current) use of anticoagulants; Z79.890 Hormone replacement therapy; Z79.891 Long term (current) use of opiate analgesic; Z86.718 Personal history of other venous thrombosis and embolism; Z96.82 Presence of neurostimulator; Z90.710 Acquired absence of both cervix and uterus; Z88.1 Allergy status to other antibiotic agents; Z88.2 Allergy status to sulfonamides; Z88.5 Allergy status to narcotic agent; Z88.8 Allergy status to other drugs, medicaments and biological substances
CPT/HCPCS: 36415; 36555; 51700; 71045; 71260; 78580; 80048; 80053; 82550; 83605; 83735; 83880; 84100; 84439; 84443; 84484; 85025; 85610; 85730; 87040; 92960; 93005; 93306; 93312; 93320; 93325; 93355; 94640; 94760; 94799; 99152; 99153; 99252; 99284; A9540; C1764; J0696; J1644; J1940; J2001; J2250; J2405; J2470; J2919; J3475; J7030; J7050; Q9967

== ENCOUNTER 2024-08-13 12:51 | Emergency (ER) | payer MEDICARE ==
[~2024-08-13] VITALS: Ht 152.4 cm; Wt 62.6 kg
[~2024-08-13 12:51] MED LIST changes: +ACETAMINOPHEN325 M1 PO; +ALBUTEROL0.63 MG/3 NEB; +AMIODARONE HCL200 MG PO; +ASPIRIN EC81 MG PO; +FUROSEMIDE40 MG PO; +GUAIFENESI100 MG/5 M PO; +K DUR10 MEQ PO; +METOPROLOL TART50 MG PO; +MIRALAX17 GM PO; +MUPIROCIN22 GM TOP; +ONDANSETRON ODT4 MG PO
[2024-08-13 14:31] LABS: BASOPHILS # (AUTO) 0.1 (0.0-0.1); BASOPHILS % 0.6 % (0.0-1.0); EOSINOPHILS # (AUTO) 0.2 (0.0-0.4); EOSINOPHILS % 1.8 % (0.0-6.0); HEMATOCRIT 43.8 % (34.2-44.1); LYMPHOCYTES # (AUTO) 1.5 (1.0-3.2); LYMPHOCYTES % 14.6 % (18.0-39.1); MEAN CORPUSCULAR HEMOGLOBIN 30.9 pg (28-32); MEAN CORPUSCULAR VOLUME 96.7 fL (81-99); MONOCYTES # (AUTO) 0.9 (0.2-0.8); MONOCYTES % 8.7 % (4.4-11.3); NEUTROPHILS # (AUTO) 7.6 (2.1-6.9); NEUTROPHILS % 74.1 % (38.7-80.0); PLATELET COUNT 161 x10e3/uL (140-360); RED BLOOD COUNT 4.53 x10e6/uL (3.6-5.1); RED CELL DISTRIBUTION WIDTH 12.1 % (11.7-14.4)
[2024-08-13 14:44] LABS: ALBUMIN 4.1 g/dL (3.5-5.0); ALBUMIN/GLOBULIN RATIO 1.4 (0.8-2.0); ANION GAP 18.8 mmol/L (8-16); BILIRUBIN,TOTAL 0.5 mg/dL (0.2-1.2); CALCIUM 9.4 mg/dL (8.4-10.2); CREATININE, SERUM 1.34 mg/dL (0.57-1.11); POTASSIUM 3.8 mmol/L (3.5-5.1); TOTAL PROTEIN 7.1 g/dL (6.5-8.1)
[2024-08-13] MEDS ORDERED: CEFPODOXIME PR100 MG PO (15:23)
[2024-08-13 16:00] VITALS: PULSE 75; RESP 16; TEMP 98; O2SAT 98
== END 2024-08-13 16:25 | disposition home or self-care (01) ==
LOC: ER 15:27
DX: M54.9 Dorsalgia, unspecified (principal); N39.0 Urinary tract infection, site not specified; N18.9 Chronic kidney disease, unspecified; I50.9 Heart failure, unspecified; I48.91 Unspecified atrial fibrillation; E03.9 Hypothyroidism, unspecified; I25.10 Atherosclerotic heart disease of native coronary artery without angina pectoris; Z86.718 Personal history of other venous thrombosis and embolism
CPT/HCPCS: 36415; 80053; 85025; 99283; J0696